=== PATIENT | female | born 1980 | race Caucasian/White ===

== ENCOUNTER 2017-11-27 18:29 | Emergency (ER) | payer BC, OTHER ==
[2017-11-27] MEDS ORDERED: Sodium Chloride 0.9% 1,000 ML IV ONE ×2 (19:46→22:30)
[2017-11-27] MEDS ORDERED: Sodium Chloride 0.9% 10 ML Syringe FLUSH PRN (19:46)
[2017-11-27] MEDS ORDERED: Metoclopramide 10 MG/2 ML SDV IVPUSH ONE (19:47)
[2017-11-27] MEDS ORDERED: HYDROmorphone 0.5 MG/0.5 ML SYRINGE IVPUSH ONE ×2 (20:06→22:17)
--- NOTE | 2017-11-27 20:11 | EDM.PDOC ---
<Deanna Rosado M - Last Filed: 11/27/17 23:10> ED HPI GENERAL MEDICAL PROBLEM - General Chief Complaint: Abdominal Pain Stated Complaint: PAIN ON RIGHT SIDE\10 WEEKS Time Seen by Provider: 11/27/17 19:00 Source of Information: Reports: Patient History Limitations: Reports: No Limitations - History of Present Illness INITIAL COMMENTS - FREE TEXT/NARRATIVE: Patient comes in today for complaint of RLQ pain that started at 1430 while she was shopping at [employer]. Describes as pain as sudden, sharp and constant with waxing and waning waves of intensity. Standing and moving increase pain; resting helps somewhat. Pain radiates from RLQ to both her low back and her right groin. Patient is 10 weeks , she will be 11 weeks on 11/29/17. She believes her last menstrual period was on 09/13/17. She had an ultrasound with Dr. Whitley at 7 weeks and reports that there was a normal intrauterine . The u/s also showed some right sided ovarian cysts and thought that this may have been due to taking clomid. Patient has had appetite changes, nausea, and vomiting for several weeks due to her and has not noticed any change in these symptoms since the onset of her RLQ pain. Patient reports that going over bumps in the road on the car ride to the hospital did cause increasing pain and discomfort. She also has a history of laproscopic surgery to remove ovarian cysts. Patient denies fever or chills. Onset: Today, Sudden Onset Date: 11/27/17 Onset Time: 14:30 Duration: Constant, Getting Worse, Waxing/Waning Location: Reports: Abdomen, Back, Pelvis Quality: Reports: Sharp Severity: Moderate Improves with: Reports: Rest Worsens with: Reports: Movement Associated Symptoms: Denies: Fever/Chills, Loss of Appetite Right Lower Abdomen Pain Score (Numeric/FACES): 7 - Related Data Allergies Allergy/AdvReac Type Severity Reaction Status Date / Time tree nut Allergy Itching Verified 11/27/17 18:40 Home Meds: Home Meds Calcium Carbonate [Calcium] 1 tab PO DAILY 11/27/17 [History] Fluticasone Propionate [Flonase] 1 spray INH ASDIRECTED 11/27/17 [History] Tds006/FA/Omega3/Dha/Fish Oil [ Gummies] 1 tab PO DAILY 11/27/17 [ History] Simethicone 1 tab PO ASDIRECTED PRN 11/27/17 [History] Cephalexin [Keflex] 500 mg PO BID #9 capsule 11/28/17 [Rx] Past Medical History Psychiatric History: Reports: PTSD - Past Surgical History Female Surgical History: Reports: Other (See Below) Other Female Surgeries/Procedures: ovarian cyst removal Social & Family History - Tobacco Use Smoking Status *Q: Never Smoker Second Hand Smoke Exposure: No - Caffeine Use Caffeine Use: Reports: None - Recreational Drug Use Recreational Drug Use: No ED ROS GENERAL - Review of Systems Review Of Systems: See Below ED EXAM, GI/ABD - Physical Exam Exam: See Below Exam Limited By: No Limitations General Appearance: Alert, WD/WN, No Apparent Distress Respiratory/Chest: No Respiratory Distress, Lungs Clear, Normal Breath Sounds, No Accessory Muscle Use, Chest Non-Tender Cardiovascular: Normal Peripheral Pulses, Regular Rate, Rhythm, No Edema, No Gallop, No JVD, No Murmur, No Rub GI/Abdominal Exam: Normal Bowel Sounds, Soft, No Organomegaly, No Distention, No Abnormal Bruit, No Mass, Pelvis Stable, Tender (+ Rovsing's sign; negative McBurney's sign; +RUQ/RLQ tenderness). No: Distended, Guarding, Rigid (Female) Exam: Deferred Back Exam: No: CVA Tenderness (L), CVA Tenderness (R) Neurological: Alert, Oriented Skin Exam: Warm, Dry, Intact, Normal Color, No Rash Course - Vital Signs Last Recorded V/S: Last Vital Signs Temp 98 F 11/27/17 18:37 Pulse 88 11/27/17 22:40 Resp 18 11/27/17 18:37 BP 114/54 L 11/27/17 18:37 Pulse Ox 98 11/27/17 22:40 - Orders/Labs/Meds Orders: Active Orders 24 hr Category Date Time Status Peripheral IV Care [RC] . DIRECTED Care 11/27/17 19:47 Active Abdomen Ltd [US] Stat Exams 11/27/17 19:48 Taken OB Transvaginal [US] Stat Exams 11/27/17 19:48 Taken CULTURE URINE [RM] Stat Lab 11/27/17 19:35 Received UA W/MICROSCOPIC [URIN] Stat Lab 11/27/17 19:35 Ordered Sodium Chloride 0.9% [Saline Flush] Med 11/27/17 19:46 Active 10 ml FLUSH ASDIRECTED PRN Peripheral IV Insertion Adult [OM.PC] Routine Oth 11/27/17 19:46 Ordered Medication Orders Sodium Chloride (Saline Flush) 10 ml FLUSH ASDIRECTED PRN PRN Reason: Keep Vein Open Last Admin: 11/27/17 19:58 Dose: 10 ml Labs: Laboratory Tests 11/27/17 11/27/17 11/27/17 Range/Units 19:35 19:38 19:38 WBC 11.04 H (3.98-10.04) K/mm3 RBC 4.45 (3.98-5.22) M/mm3 Hgb 13.4 (11.2-15.7) gm/L Hct 38.8 (34.1-44.9) % MCV 87.2 (79.4-94.8) fl MCH 30.1 (25.6-32.2) pg MCHC 34.5 (32.2-35.5) g/dl RDW Std Deviation 41.3 (36.4-46.3) fL Plt Count 222 (182-369) K/mm3 MPV 9.7 (9.4-12.3) fl Neutrophils % (Manual) 73 H (40-60) % Band Neutrophils % 0 (0-10) % Lymphocytes % (Manual) 25 (20-40) % Atypical Lymphs % 0 % Monocytes % (Manual) 2 (2-10) % Eosinophils % (Manual) 0 L (0.7-5.8) % Basophils % (Manual) 0 L (0.1-1.2) Platelet Estimate Adequate Plt Morphology Comment Normal RBC Morph Comment Normal Sodium 135 L (136-145) mEq/L Potassium 3.3 L (3.5-5.1) mEq/L Chloride 100 (98-107) mEq/L Carbon Dioxide 22 (21-32) mEq/L Anion Gap 16.3 H (5-15) BUN 11 (7-18) mg/dL Creatinine 0.8 (0.55-1.02) mg/dL Est Cr Clr Drug Dosing 99.01 mL/min Estimated GFR (MDRD) > 60 (>60) mL/min BUN/Creatinine Ratio 13.8 L (14-18) Glucose 85 (74-106) mg/dL Calcium 8.9 (8.5-10.1) mg/dL Total Bilirubin 0.6 (0.2-1.0) mg/dL AST 19 (15-37) U/L ALT 25 (14-59) U/L Alkaline Phosphatase 53 (46-116) U/L C-Reactive Protein 1.7 H* (<1.0) mg/dL Total Protein 8.1 (6.4-8.2) g/dl Albumin 3.7 (3.4-5.0) g/dl Globulin 4.4 gm/dL Albumin/Globulin Ratio 0.8 L (1-2) HCG, Quant 53907.0 mIU/mL Urine Color Light yellow (Yellow) Urine Appearance Slt cloudy H (Clear) Urine pH 6.5 (5.0-8.0) Ur Specific [place] 1.010 (1.005-1.030) Urine Protein Negative (Negative) Urine Glucose (UA) Negative (Negative) Urine Ketones 1+ H (Negative) Urine Occult Blood Negative (Negative) Urine Nitrite Negative (Negative) Urine Bilirubin Negative (Negative) Urine Urobilinogen 0.2 (0.2-1.0) Ur Leukocyte Esterase 2+ H (Negative) Urine RBC 0-5 (0-5) /hpf Urine WBC 5-10 H (0-5) /hpf Urine WBC Clumps Rare (NOT SEEN) /hpf Ur Epithelial Cells 0-5 (0-5) /hpf Urine Bacteria Moderate H (FEW) /hpf Urine Mucus Few (FEW) /hpf Meds: Medications Generic Name Dose Route Start Last Admin Trade Name Frekayley PRN Reason Stop Dose Admin Sodium Chloride 10 ml 11/27/17 19:46 11/27/17 19:58 Saline Flush FLUSH 10 ml ASDIRECTED PRN Administration Keep Vein Open Discontinued Medications Generic Name Dose Route Start Last Admin Trade Name Freq PRN Reason Stop Dose Admin Cephalexin 500 mg 11/27/17 23:48 Keflex PO 11/27/17 23:49 ONETIME ONE Hydromorphone HCl 0.5 mg 11/27/17 20:06 11/27/17 20:12 Dilaudid IVPUSH 11/27/17 20:07 0.25 mg ONETIME ONE Administration Hydromorphone HCl 0.5 mg 11/27/17 22:17 11/27/17 22:21 Dilaudid IVPUSH 11/27/17 22:18 0.5 mg ONETIME ONE Administration Hydromorphone HCl Confirm 11/27/17 22:18 11/27/17 22:22 Dilaudid Administered 11/27/17 22:19 Not Given Dose 0.5 mg .ROUTE .STK-MED ONE Sodium Chloride 1,000 mls @ 999 mls/hr 11/27/17 19:46 11/27/17 19:58 Normal Saline IV 11/27/17 20:46 999 mls/hr ONETIME ONE Administration Sodium Chloride 1,000 mls @ 999 mls/hr 11/27/17 22:30 11/27/17 23:00 Normal Saline IV 11/27/17 23:30 999 mls/hr ONETIME ONE Administration Metoclopramide HCl 5 mg 11/27/17 19:47 11/27/17 19:59 Reglan IVPUSH 11/27/17 19:48 Not Given ONETIME ONE Potassium Chloride 20 meq 11/27/17 23:48 Klor-Con M20 PO 11/27/17 23:49 ONETIME ONE Departure - Departure Disposition: Home, Self-Care 01 Clinical Impression: , UTI (urinary tract infection), Constipation - Discharge Information Prescriptions: Cephalexin [Keflex] 500 mg PO BID #9 capsule Referrals: Petr Roman MD [Primary Care Provider] - Karyna Whitley MD [Physician] - Forms: ED Department Discharge Additional Instructions: You were given medication the other can affect your ability to drive and operate machinery. Do not drive or operate machinery within 10 hours of receiving prescription narcotic pain medication. Take constipation medications per approved medication sheet as needed. Keflex 1 tab twice a day for 5 days. Drink plenty of fluids. OTC tylenol as needed for pain. Follow-up with OB as planned. Please return to ER if your symptoms change or worsen. - My Orders Last 24 Hours: My Active Orders 11/27/17 19:35 CULTURE URINE [RM] Stat UA W/MICROSCOPIC [URIN] Stat 11/27/17 19:46 Sodium Chloride 0.9% [Saline Flush] 10 ml FLUSH ASDIRECTED PRN Peripheral IV Insertion Adult [OM.PC] Routine 11/27/17 19:47 Peripheral IV Care [RC] . DIRECTED 11/27/17 19:48 Abdomen Ltd [US] Stat OB Transvaginal [US] Stat - Assessment/Plan Last 24 Hours: My Active Orders 11/27/17 19:35 CULTURE URINE [RM] Stat UA W/MICROSCOPIC [URIN] Stat 11/27/17 19:46 Sodium Chloride 0.9% [Saline Flush] 10 ml FLUSH ASDIRECTED PRN Peripheral IV Insertion Adult [OM.PC] Routine 11/27/17 19:47 Peripheral IV Care [RC] . DIRECTED 11/27/17 19:48 Abdomen Ltd [US] Stat OB Transvaginal [US] Stat <DarylbaldomeroLilibeth Correia - Last Filed: 11/28/17 00:13> ED HPI GENERAL MEDICAL PROBLEM - History of Present Illness INITIAL COMMENTS - FREE TEXT/NARRATIVE: I have seen the patient and agree with the HPI as documented by MICHAEL Cevallos. Patient reports last intake was this afternoon, she had some potato chips, She then juan carlos to [employer]. Pain gradually worsened. Patient is approximately 10 weeks . No vaginal bleeding. Patient is a . Blood type O neg. ED ROS GENERAL - Review of Systems GI/Abdominal: Reports: Abdominal Pain (RLQ), Nausea (attributed to ), Vomiting (attributed to ) : Reports: Other (no vaginal bleeding). Denies: Dysuria Course - Radiology Interpretation Free Text/Narrative:: Transvaginal ultrasound impression per [facility]: There is a single, living intrauterine with estimated gestational age or 11 weeks and 3 days. This corresponds to an estimated date of delivery of Jun 15, 2018. The LMP provided is 524-18. The gestational age based on LMP is 10 weeks and 5 days corresponding to an LÁZARO of Jun 20, 2018. Small uterine fibroid withiout encroachment on the gestional sac. Bilateral ovarian cysts. US abd limited, RUQ impression per [facility]: cholelithiasis without evidence of acute cholecytitis. The appendix is not visualized. Acute appendicitis is not completely excluded. - Re-Assessments/Exams Free Text/Narrative Re-Assessment/Exam: 11/27/17 23:52 I have seen the patient and agree with the HPI, ROS and PE as documented by MICHAEL Cevallos. I have reviewed the labs and imaging with the patient. Unfortunately, her ultrasound is inconclusive for appendicitis. I discussed the case with Dr. North, surgery civil engineering professional. She is coming evaluated the patient in the ED. Feels this is unlikely be appendicitis. Feels this is more likely constipation, UTI or possibly something musculoskeletal. Feels comfortable not pursuing any additional imaging. 11/28/17 00:11 Discussed disposition with the patient. I have given her the option to stay in the hospital for observation. She has considered her options and would like to go home. I will give her a dose of Keflex for UTI here in the ED tonight and does potassium as hers was slightly low. She is instructed to return to the ER for symptoms change or worsen. I provided her with a list of medications that are acceptable to take during . Discharge instructions as documented. Departure - Departure Time of Disposition: 00:03 Condition: Fair - Discharge Information *PRESCRIPTION DRUG MONITORING PROGRAM REVIEWED*: No *COPY OF PRESCRIPTION DRUG MONITORING REPORT IN PATIENT EDUARDO: No
[2017-11-27] MEDS ORDERED: HYDROmorphone 0.5 MG/0.5 ML SYRINGE ONE (22:18)
[2017-11-27] MEDS ORDERED: Cephalexin 500 MG Cap PO ONE (23:48)
[2017-11-27] MEDS ORDERED: Potassium Chloride 20 MEQ Tab.ER PO ONE (23:48)
--- NOTE | 2017-11-27 23:55 | PCM.CONS ---
H&P History of Present Illness - General Date of Service: 11/27/17 Source of Information: Patient, Provider History Limitations: Reports: No Limitations - History of Present Illness Initial Comments - Free Text/Narative: Karyna is a 37-year-old female who presents to the emergency department complaining of right-sided abdominal pain. She is 10wks . The patient reports 2 previous episodes in the recent past, which were self resolving. In the previous times, a patient had pain on the right flank area radiating to the back and down into the groin. This episode is similar but more severe, and it did not resolve while at home. The patient reports previous episodes only lasted 2-3 hours. The patient states that movement aggravates the pain. She reports having a small loose stool today, but during this has not been fully evacuating her bowels. She denies any vaginal discharge. Prior to today, she has been feeling well. She has a small amount of nausea and vomiting which she thinks is related to morning sickness of . She denies any fever or chills. While in the emergency department, she underwent a transvaginal ultrasound which revealed a normal intrauterine with a viable fetus. Her ovaries were visualized, but the appendix was not visualized. She did not have any free fluid in the pelvis. Right Lower Abdomen Pain Score (Numeric/FACES): 7 - Related Data Allergies/Adverse Reactions: Allergies Allergy/AdvReac Type Severity Reaction Status Date / Time tree nut Allergy Itching Verified 11/27/17 18:40 Home Medications: Home Meds Calcium Carbonate [Calcium] 1 tab PO DAILY 11/27/17 [History] Fluticasone Propionate [Flonase] 1 spray INH ASDIRECTED 11/27/17 [History] Vhg952/FA/Omega3/Dha/Fish Oil [ Gummies] 1 tab PO DAILY 11/27/17 [ History] Simethicone 1 tab PO ASDIRECTED PRN 11/27/17 [History] Past Medical History Psychiatric History: Reports: PTSD - Past Surgical History Other Female Surgeries/Procedures: ovarian cyst removal Social & Family History - Tobacco Use Smoking Status *Q: Never Smoker Second Hand Smoke Exposure: No - Caffeine Use Caffeine Use: Reports: None - Recreational Drug Use Recreational Drug Use: No H&P Review of Systems - Review of Systems: Review Of Systems: See Below General: Reports: No Symptoms HEENT: Reports: No Symptoms Pulmonary: Reports: No Symptoms Cardiovascular: Reports: No Symptoms Gastrointestinal: Reports: Abdominal Pain, Distension, Flatus, Hematochezia, Melena, Nausea (associated with ), Vomiting (associated with ) Genitourinary: Reports: No Symptoms Musculoskeletal: Reports: Back Pain Skin: Reports: No Symptoms Psychiatric: Reports: No Symptoms Neurological: Reports: No Symptoms Hematologic/Lymphatic: Reports: No Symptoms Immunologic: Reports: No Symptoms Exam - Exam Exam: See Below - Vital Signs Vital Signs: Last Vital Signs Temp 36.6 C 11/27/17 18:37 Pulse 88 11/27/17 22:40 Resp 18 11/27/17 18:37 BP 114/54 L 11/27/17 18:37 Pulse Ox 98 11/27/17 22:40 Weight: 87.09 kg - Exam General: Alert, Oriented HEENT: Conjunctiva Clear, EOMI Neck: Supple Lungs: Clear to Auscultation Cardiovascular: Regular Rate, Regular Rhythm GI/Abdominal Exam: Soft, No Organomegaly, No Distention, Tender (over right flank and thoracoabdominal area). No: Guarding, Rebound Rectal (Female) Exam: Deferred Skin: Warm, Dry, Intact Neurological: Cranial Nerves Intact Neuro Extensive - Mental Status: Alert, Oriented x3, Normal Mood/Affect Neuro Extensive - Motor, Sensory, Reflexes: CN II-XII Intact (grossly) Psychiatric: Alert, Normal Affect, Normal Mood - Patient Data Lab Results Last 24 hrs: Laboratory Results - last 24 hr 11/27/17 11/27/17 11/27/17 Range/Units 19:35 19:38 19:38 WBC 11.04 H (3.98-10.04) K/mm3 RBC 4.45 (3.98-5.22) M/mm3 Hgb 13.4 (11.2-15.7) gm/L Hct 38.8 (34.1-44.9) % MCV 87.2 (79.4-94.8) fl MCH 30.1 (25.6-32.2) pg MCHC 34.5 (32.2-35.5) g/dl RDW Std Deviation 41.3 (36.4-46.3) fL Plt Count 222 (182-369) K/mm3 MPV 9.7 (9.4-12.3) fl Neutrophils % (Manual) 73 H (40-60) % Band Neutrophils % 0 (0-10) % Lymphocytes % (Manual) 25 (20-40) % Atypical Lymphs % 0 % Monocytes % (Manual) 2 (2-10) % Eosinophils % (Manual) 0 L (0.7-5.8) % Basophils % (Manual) 0 L (0.1-1.2) Platelet Estimate Adequate Plt Morphology Comment Normal RBC Morph Comment Normal Sodium 135 L (136-145) mEq/L Potassium 3.3 L (3.5-5.1) mEq/L Chloride 100 (98-107) mEq/L Carbon Dioxide 22 (21-32) mEq/L Anion Gap 16.3 H (5-15) BUN 11 (7-18) mg/dL Creatinine 0.8 (0.55-1.02) mg/dL Est Cr Clr Drug Dosing 99.01 mL/min Estimated GFR (MDRD) > 60 (>60) mL/min BUN/Creatinine Ratio 13.8 L (14-18) Glucose 85 (74-106) mg/dL Calcium 8.9 (8.5-10.1) mg/dL Total Bilirubin 0.6 (0.2-1.0) mg/dL AST 19 (15-37) U/L ALT 25 (14-59) U/L Alkaline Phosphatase 53 (46-116) U/L C-Reactive Protein 1.7 H* (<1.0) mg/dL Total Protein 8.1 (6.4-8.2) g/dl Albumin 3.7 (3.4-5.0) g/dl Globulin 4.4 gm/dL Albumin/Globulin Ratio 0.8 L (1-2) HCG, Quant 10660.0 mIU/mL Urine Color Light yellow (Yellow) Urine Appearance Slt cloudy H (Clear) Urine pH 6.5 (5.0-8.0) Ur Specific [place] 1.010 (1.005-1.030) Urine Protein Negative (Negative) Urine Glucose (UA) Negative (Negative) Urine Ketones 1+ H (Negative) Urine Occult Blood Negative (Negative) Urine Nitrite Negative (Negative) Urine Bilirubin Negative (Negative) Urine Urobilinogen 0.2 (0.2-1.0) Ur Leukocyte Esterase 2+ H (Negative) Urine RBC 0-5 (0-5) /hpf Urine WBC 5-10 H (0-5) /hpf Urine WBC Clumps Rare (NOT SEEN) /hpf Ur Epithelial Cells 0-5 (0-5) /hpf Urine Bacteria Moderate H (FEW) /hpf Urine Mucus Few (FEW) /hpf Result Diagrams: 11/27/17 19:38 11/27/17 19:38 Consult PN Assessment/Plan Procedures: Procedures X-RAY EXAM OF FOOT (02/09/15) (1) Abdominal pain during SNOMED Code(s): 262769150 Code(s): O26.899 - OTH RELATED CONDITIONS, UNSPECIFIED TRIMESTER; R10.9 - UNSPECIFIED ABDOMINAL PAIN Current Visit: Yes Problem List Initiated/Reviewed/Updated: Yes Plan: Karyna is a 37-year-old female who is 10 weeks , who presents with a one -day history of abdominal pain in the right flank area. She has no clinical findings that definitively suggest appendicitis. She has no tenderness to palpation in the RLQ, and no fever or elevation in WBC that is not expected with . Based on my exam and review of the above findings, clinical concern for appendicitis is very low. No need for any additional imaging studies. Suspected constipation vs. musculoskeletal cause for pain - Recommend treatment with OTC therapy for constipation - Recommend treat UTI with appropriate PO abx - Keep follow up appointment with OB on 11/29/17 - Please have patient return to ED/OB or primary provider if symptoms worsen or she develops fever. Thank you for this interesting consult. Bita Lofton MD General Surgery
--- NOTE | 2017-11-28 07:11 | US ---
First trimester obstetrical ultrasound: Multiple real-time images were obtained. Dates: LMP: LMP given as 09/13/17, LÁZARO 06/20/18, gestational age 10 weeks 5 days Current ultrasound: LÁZARO 06/15/18, gestational age 11 weeks 3 days Single intrauterine gestation is seen. Amniotic fluid volume is normal. Embryo is identified. No subchorionic hemorrhage is seen. Small subendometrial fibroid measuring 1.3 cm felt to be present. Maternal ovaries show small cysts which are felt to be incidental. No free fluid is seen. Impression: 1. Single intrauterine gestation. Dates as noted above. 2. Small subendometrial fibroid. 3. Small cysts within both ovaries which are felt to be incidental. Diagnostic code #2 I agree with preliminary report issued by [employer] ([facility] preliminary report dictated on 11/27/17, 11:49 PM Central Time)
--- NOTE | 2017-11-28 07:11 | US ---
Limited abdominal ultrasound: Multiple real-time images of the upper right abdomen were obtained as well as of the right lower abdomen. Comparison: No prior abdominal imaging. Liver shows no focal parenchymal abnormality. Single gallstone seen within the gallbladder measuring about 1.7 cm. No gallbladder wall thickening or biliary duct dilatation is seen. Right kidney shows no hydronephrosis or mass. Right kidney has a length of 10.9 cm. Images of the right lower quadrant show no visualization of the appendix. Pancreas is incompletely seen. Visualized portions of the pancreas are within normal limits. Impression: 1. Single gallstone measuring 1.7 cm. No gallbladder wall thickening or biliary duct dilatation is seen. 2. Other portions of the right upper quadrant abdominal ultrasound appear unremarkable. 3. Appendix not visualized. In the correct clinical setting, this does not exclude appendicitis. Diagnostic code #3 I agree with preliminary report issued by [employer] ([facility] preliminary report dictated on 11/27/17, 11:33 PM Central Time)
== END 2017-11-28 00:25 | disposition home or self-care (01) ==
LOC: JD.ED 18:29
DX: O23.41 Unspecified infection of urinary tract in pregnancy, first trimester (principal); O99.611 Diseases of the digestive system complicating pregnancy, first trimester; K59.00 Constipation, unspecified; Z3A.10 10 weeks gestation of pregnancy
CPT/HCPCS: 36415; 76705; 76817; 80053; 81001; 84702; 85007; 85027; 86140; 87086; 96361; 96374; 96376; 99285; A9270; J1170; J7040; J7050; 99284

== ENCOUNTER 2019-03-21 21:00 | Emergency (ER) | payer BC, OTHER ==
--- NOTE | 2019-03-21 22:20 | EDM.PDOC ---
ED HPI GENERAL MEDICAL PROBLEM - General Chief Complaint: Lower Extremity Injury/Pain Stated Complaint: knee injury Time Seen by Provider: 03/21/19 21:12 Source of Information: Reports: Patient History Limitations: Reports: No Limitations - History of Present Illness INITIAL COMMENTS - FREE TEXT/NARRATIVE: The patient presents with right knee pain. She was sitting on the couch tonight with her right leg bent and under her left leg. She was sitting there for about 30 minutes and then she move and herd and felt a pop. She cannot fully extend her leg now. She cannot bear weight on the left either without pain. She did do about 25 minutes on the treadmill tonight. Onset: Sudden Duration: Minutes: Location: Reports: Lower Extremity, Right (Knee) Quality: Reports: Sharp Severity: Moderate Improves with: Reports: Immobilization Worsens with: Reports: Movement Context: Denies: Trauma Associated Symptoms: Reports: No Other Symptoms Right Knee Pain Score (Numeric/FACES): 3 - Related Data Allergies Allergy/AdvReac Type Severity Reaction Status Date / Time tree nut Allergy Itching Verified 03/21/19 21:13 Past Medical History - Past Health History Medical/Surgical History: Denies Medical/Surgical History Psychiatric History: Reports: PTSD - Past Surgical History Other Female Surgeries/Procedures: ovarian cyst removal Social & Family History - Tobacco Use Second Hand Smoke Exposure: No - Caffeine Use Caffeine Use: Reports: Soda - Recreational Drug Use Recreational Drug Use: No Review of Systems - Review of Systems Review Of Systems: See Below Constitutional: Reports: No Symptoms Eyes: Reports: No Symptoms Ears: Reports: No Symptoms Nose: Reports: No Symptoms Mouth/Throat: Reports: No Symptoms Respiratory: Reports: No Symptoms Cardiovascular: Reports: No Symptoms GI/Abdominal: Reports: No Symptoms Genitourinary: Reports: No Symptoms Musculoskeletal: Reports: Other (Right knee pain) ED EXAM, GENERAL - Physical Exam Exam: See Below Exam Limited By: No Limitations General Appearance: Alert, No Apparent Distress Ears: Normal External Exam Nose: Normal Inspection Head: Atraumatic, Normocephalic Neck: Normal Inspection Respiratory/Chest: No Respiratory Distress Extremities: Other (Mild edema to the right knee with pain upon palpation to the patellar tendon and medial aspect of her knee. She can lift her leg off of the bed. Her ligaments are stable. She had more pain within the medial knee when stressed. She has good sensation and pulses distally.) Course - Vital Signs Last Recorded V/S: Last Vital Signs Temp 99.1 F 03/21/19 21:12 Pulse 94 03/21/19 21:12 Resp 15 03/21/19 21:12 BP 127/82 03/21/19 21:12 Pulse Ox 98 03/21/19 21:12 - Orders/Labs/Meds Orders: Active Orders 24 hr Category Date Time Status Knee Min 4V Rt [CR] Stat Exams 03/21/19 21:20 Taken - Re-Assessments/Exams Free Text/Narrative Re-Assessment/Exam: 03/21/19 22:20 I ordered an x-ray and it looks good. 03/21/19 22:21 Her x-ray looks good. I will get her some crutches, manjinder wrap and a knee immobilizer. I am concerned she may have strained her patellar tendon or miniscus. I will have her follow up with Dr Calderon. Departure - Departure Time of Disposition: 22:25 Disposition: Home, Self-Care 01 Condition: Good Clinical Impression: Right knee sprain Qualifiers: Encounter type: initial encounter Involved ligament of knee: unspecified ligament Qualified Code(s): S83.91XA - Sprain of unspecified site of right knee , initial encounter - Discharge Information *PRESCRIPTION DRUG MONITORING PROGRAM REVIEWED*: No *COPY OF PRESCRIPTION DRUG MONITORING REPORT IN PATIENT EDUARDO: No Referrals: Petr Roman MD [Primary Care Provider] - Dax Calderon MD [Physician] - 1 Week Additional Instructions: Ice your knee for 15 minutes 3 to 5 times per day for 2 days. Try to elevate your knee as much as you can for the next couple of days. I have ordered an MRI of your knee. Someone from our radiology department will call you with a date and time. Take motrin or aleve for the pain. - My Orders Last 24 Hours: My Active Orders 03/21/19 21:20 Knee Min 4V Rt [CR] Stat - Assessment/Plan Last 24 Hours: My Active Orders 03/21/19 21:20 Knee Min 4V Rt [CR] Stat
--- NOTE | 2019-03-24 09:12 | CR ---
Right knee: Four views of the right knee were obtained. Comparison: No prior knee exam is available. Findings: Joint spaces are not seen well in profile. Joint spaces are felt to be grossly maintained. No discrete fracture, dislocation or other bony abnormality is identified. No joint effusion is seen. Impression: 1. Slightly suboptimal positioning presumably due to patient unable to straighten the knee. 2. Nothing acute is definitely appreciated. Note: If patient continues to be symptomatic, recommend repeat exam in 10-14 days. Diagnostic code #1 This report was dictated in [place] Standard Time
== END 2019-03-21 22:37 | disposition home or self-care (01) ==
LOC: JD.ED 21:00
DX: S83.91XA Sprain of unspecified site of right knee, initial encounter (principal); Z91.018 Allergy to other foods; X50.1XXA Overexertion from prolonged static or awkward postures, initial encounter
CPT/HCPCS: 73564-26-RT; 73564-RT; 99282; 99283-25

== ENCOUNTER 2025-02-21 19:54 | Emergency (ER) | payer BC ==
[2025-02-21] MEDS ORDERED: Sodium Chloride 0.9% 10 ML Syringe FLUSH PRN (20:24)
[2025-02-21] MEDS: EPINEPHrine 1 MG/ML SDV IM ONE (20:44)
== END 2025-02-21 22:50 | disposition home or self-care (01) ==
LOC: JD.ED 19:54
DX: T78.19XA Other adverse food reactions, not elsewhere classified, initial encounter (principal); R07.0 Pain in throat; Z91.018 Allergy to other foods; X58.XXXA Exposure to other specified factors, initial encounter
CPT/HCPCS: 96372; 96374; 99283; J0169; J1308; J7030